=== PATIENT | male | born 1995 | race African-American/Black ===

== ENCOUNTER 2016-09-17 11:19 | Emergency (ER) | payer OTHER ==
[~2016-09-17] VITALS: Ht 177.8 cm; Wt 61.5 kg
[2016-09-17] MEDS ORDERED: ACETAMINOPHEN 500 MG TABLET PO ONE (13:30)
[2016-09-17 13:41] LABS: APPEARANCE,URINE CLOUDY (CLEAR); GLUCOSE, URINE (UA) NEGATIVE (NEGATIVE); KETONES,URINE 40 mg/dL (NEGATIVE); LEUKOCYTE ESTERASE ,URINE LARGE (NEGATIVE); OCCULT BLOOD,URINE TRACE (NEGATIVE); PH,URINE 7.5 (5.0-8.0); PROTEIN,URINE POS 1+ (NEGATIVE)
[2016-09-17 13:42] LABS: ADD UA MICROSCOPIC YES
[2016-09-17 13:47] LABS: RBC,URINE 0-2 /HPF (0-2); SQUAMOUS EPITHELIAL CELL,UR Few /LPF (None Seen); WBC,URINE 26-50 /HPF (0-5)
[2016-09-17] MEDS ORDERED: SODIUM CHLORIDE 0.9% 1,000 ML IV ONE (15:00)
[2016-09-17 15:20] LABS: EOSINOPHILS % (AUTO) 0 % (1.0-6.0); HEMATOCRIT 44.7 % (41-53); HEMOGLOBIN 15.4 g/dL (13.5-17.5); LYMPHOCYTES # (AUTO) 0.5 K/uL (1.0-4.8); LYMPHOCYTES % (AUTO) 2.7 % (22.0-44.0); MEAN CORPUSCULAR HEMOGLOBIN 29.6 pg (26.0-34.0); MEAN CORPUSCULAR HGB CONC 34.6 G/dL (31.0-37.0); MEAN CORPUSCULAR VOLUME 86 fL (80-100); MONOCYTES # (AUTO) 1.2 K/uL (0.1-1.0); MONOCYTES % (AUTO) 6.9 % (2.0-9.0); NEUTROPHILS # (AUTO) 15.5 K/uL (1.8-7.7); PLATELET COUNT (AUTO) 165 K/uL (150-450); RED BLOOD CELL COUNT(AUTO) 5.22 MIL/uL (4.50-5.90); RED CELL DISTRIBUTION WIDTH 12.5 % (11.5-14.5); WHITE BLOOD COUNT (AUTO) 17.2 K/uL (4.5-11.0)
[2016-09-17 15:21] LABS: NEUTROPHILS % (AUTO) 90.4 % (40.0-70.0)
[2016-09-17 15:24] LABS: CALCIUM, TOTAL 8.9 mg/dL (8.8-10.5); CREATININE 1.72 mg/dL (0.60-1.30); POTASSIUM 3.4 mmol/L (3.5-5.1)
[2016-09-17 15:29] LABS: BILIRUBIN,TOTAL 2.2 mg/dL (0.1-1.0)
[2016-09-17 15:39] VITALS: BP 104/50
[2016-09-17] MEDS ORDERED: POTASSIUM CHLORIDE 20 MEQ ER TABLET PO ONE (15:45)
[2016-09-17] MEDS ORDERED: CefTRIAXone 1 GM/DEXTROSE 50 ML IV ONE (15:45)
[2016-09-17 16:11] LABS: RBC MORPHOLOGY COMMENT NORMAL RBC MORPH
[2016-09-17 16:55] LABS: PROCALCITONIN (PCT) 31.04 ng/mL (<0.50)
== END 2016-09-17 17:04 | disposition home or self-care (01) ==
LOC: EMS 11:23
DX: N12 Tubulo-interstitial nephritis, not specified as acute or chronic (principal); Z91.018 Allergy to other foods
CPT/HCPCS: 36415; 71020; 80053; 81001; 84145; 85025; 87040; 87077; 87086; 96361; 96374; 99285; J0696